=== PATIENT | female | born 1980 | race Hispanic/Latino ===

== ENCOUNTER 2017-08-02 08:46 | Inpatient (IN) | payer OTHER ==
[~2017-08-02] VITALS: Ht 154.9 cm; Wt 71.2 kg
[~2017-08-02 08:46] MED LIST: IRON325 M1 PO; PRE-NATAL PO
[2017-08-04] VITALS (18 sets, daily range): BP systolic 92–140; BP diastolic 45–83
--- NOTE | 2017-08-04 02:00 | NUR ---
0045- PT ARRIVED ON UNIT FOR SCHEDULED AM REPEAT , ACCOMPANIED BY SIGNIFICANT OTHER, ADMITTED TO AND ORIENTED TO AND CALL RESENDIZ, ROUTINE ADMISSION COMPLETED, EFM X2 APPLIED- REACTIVE TRACING OBTAINED, ASSESSMENT DONE- ALL WNL, VSS, IV SITE OBTAINED AND IVF'S INFUSING W/OUT DIFFICULTY, RADHA AREA PREPED/SHAVED FOR SURGERY AT THIS TIME, PT DENIES ANY CONCERNS OR NEEDS AT THIS TIME, ENCOURAGED TO CALL NURSE FOR ANY NEEDS OR CONCERNS- VERBALIZES UNDERSTANDING, CALL RESENDIZ WITHIN REACH.
[2017-08-04 02:07] LABS: URINE BILIRUBIN - DIPSTICK NEGATIVE (NEGATIVE); URINE BLOOD DIPSTICK TRACE-INTACT (NEGATIVE); URINE COLOR YELLOW; URINE GLUCOSE - DIPSTICK NEGATIVE (NEGATIVE); URINE KETONE TRACE mg/dL (NEGATIVE); URINE NITRITE - DIPSTICK NEGATIVE (Negative); URINE PH 5.5 (4.5-8.0); URINE PROTEIN - DIPSTICK NEGATIVE (NEG-TRACE); URINE UROBILINOGEN - DIPSTICK 0.2 E.U./dL (0.2)
[2017-08-04 02:09] LABS: HEMATOCRIT 33.6 % (37.0-47.0); HEMOGLOBIN 10.6 g/dl (12.0-16.0); IMMATURE GRANULOCYTES 0.4 % (0.0-1.0); MEAN CELL VOLUME 82.6 fL CALC (80.0-100.0); MEAN CORPUSCULAR HGB CONC 31.5 g/L CALC (32.0-36.0); NEUT# 4.71 thou/uL (2.00-7.15); RED BLOOD COUNT 4.07 mill/uL (4.20-5.60); RED CELL DISTRI WIDTH 19.2 % (11.5-15.5)
[2017-08-04 02:11] LABS: BARBITURATES NEGATIVE (NEGATIVE); COCAINE NEGATIVE (NEGATIVE); METHADONE NEGATIVE (NEGATIVE); OXCYCODONE NEGATIVE (NEGATIVE); TETRAHYDROCANNABIONOL NEGATIVE (NEGATIVE); TRICYLIC ANTIDEPRESSANTS NEGATIVE (NEGATIVE)
[2017-08-04 02:14] LABS: URINE CLARITY SL CLOUDY; URINE LEUK ESTERASE LARGE (NEGATIVE)
[2017-08-04 02:18] LABS: URINE BACTERIA MANY hpf; URINE SQUAMOUS EPITHELIAL CELL MANY EPI/hpf (0-FEW); URINE WBC 20-50 WBC/hpf (0-5)
[2017-08-04 02:30] LABS: ALBUMIN 3.5 g/dL (3.2-5.0); ALKALINE PHOSPHATASE 301 u/l (38-126); ANION GAP 15 (6-22 (CALC)); BILIRUBIN, TOTAL 0.4 mg/dL (0.0-1.4); BUN 7 mg/dL (7-17); BUN/CREATININE RATIO 15 (12-20 (CALC)); CALCIUM 9.9 mg/dL (8.4-10.2); CARBON DIOXIDE 18 mmol/l (22-30); CHLORIDE 110 mmol/l (95-108); CREATININE 0.5 mg/dL (0.5-1.0); GFR > 60 ML/MIN (>=60 (CALC)); GFR FOR AFR.AMER. > 60 ML/MIN (>=60 (CALC)); GLUCOSE 75 mg/dL (65-105); POTASSIUM 4.1 mmol/l (3.5-5.1); SGOT/AST 22 u/l (14-36); SGPT/ALT 20 u/l (9-52); SODIUM 138 mmol/l (137-146); TOTAL PROTEIN 6.4 g/dL (6.3-8.2)
--- NOTE | 2017-08-04 06:35 | NUR ---
PT PREPED FOR PRE-OP THIS AM, UP TO BR- VOIDED W/OUT DIFFICULTY, PT CLEANSED ABD AREA W/HIBICLEANS, MEDICATED ORDERED, EFM X2 APPLIED, VSS, PT DENIES ANY PAIN OR CONCERNS AT THIS TIME, SPOUSE AT BEDSIDE, PT AND SPOUSE REENCOURAGED TO CALL NURSE FOR ANY NEEDS OR CONCERNS.
--- NOTE | 2017-08-04 06:45 | NUR ---
Received report from prior shift on patient.
--- NOTE | 2017-08-04 07:27 | NUR ---
Patient to OR at present time via wheelchair in good condition.
--- NOTE | 2017-08-04 08:52 | NUR ---
Patient to Pacu via stretcher.
--- NOTE | 2017-08-04 09:16 | NUR ---
Cytotec 200mcg by mouth given as ordered.
--- NOTE | 2017-08-04 09:50 | NUR ---
Patient to room 205 via stretcher alert with to breast accompanied by PACU staff. Patient voices no concern at this moment. Significant other to bedside.
--- NOTE | 2017-08-04 11:03 | NUR ---
Family to bedside at present time.
--- NOTE | 2017-08-04 12:23 | NUR ---
Ancef 2gm iv given as ordered.
--- NOTE | 2017-08-04 14:00 | NUR ---
patient resting in bed in no distress. Patient states pain level of 1 on scale of 1 to 10. Patient denies wanting pain medication at present time.
--- NOTE | 2017-08-04 16:50 | NUR ---
Patient frias out and up to bathroom. Pericare done with instructions, peripad and mesh panties applied.
--- NOTE | 2017-08-04 18:42 | NUR ---
Patient resting sitting in chair with in no distress.
--- NOTE | 2017-08-04 18:48 | NUR ---
BEDSIDE PT REPORT RECEIVED FROM EMERY ROSA RN ON PT STATUS. PT RESTING IN RECLINER HOLDING . PT DENIES PAIN. INFORMED PT AND (WHO SPEAKS EQUATORIAL GUINEAN) TO TAKE PAIN MEDICATION BEFORE PAIN REACHES A 10/10. INTERPRETS AND PT NODS IN AGREEMENT.
--- NOTE | 2017-08-04 20:42 | NUR ---
PT AMBULATES TO RESTROOM. GAIT SLOW AND STEADY DENIES DIZZINESS. VOIDS IN URINE CONTAINER BUT EMPTIES IT BEFORE NURSE CAN MEASURE URINE. ENCOURAGED NOT TO EMPTY HAT UNTIL NURSE CAN SEE AMOUNT. VS TAKEN AND PHYSICAL ASSESSMENT DONE. USES INCENTIVE SPIROMETER X 10 TRIES TO 1500 ML. MEDICATED FOR PAIN.
--- NOTE | 2017-08-04 23:40 | NUR ---
PT NURSING . BED IN LOW POSITION AND CALL LIGHT WITHIN REACH.
--- NOTE | 2017-08-05 02:14 | NUR ---
PT TRYING TO BREASTFEED INFANT. CRYING LOUDLY. REQUESTED PAIN MEDICATION. MEDICATED WITH TORADOL 30MG IVP FOR 6/10 ABDOMINAL AND INCISIONAL PAIN. HOLDS .
[2017-08-05 05:30] VITALS: BP 108/59
--- NOTE | 2017-08-05 05:58 | NUR ---
CBC DRAWN FROM LEFT AC WITHOUT PROBLEMS AND MINIMAL BLEEDING. REQUESTS PAIN MEDICATION. SEE E-MAR FOR DETAILS. NO OTHER CONCERNS. VOIDED 2 TIMES RECENTLY. AT BEDSIDE.
[2017-08-05 06:24] LABS: HEMATOCRIT 26.8 % (37.0-47.0); HEMOGLOBIN 8.8 g/dl (12.0-16.0); IMMATURE GRANULOCYTES 0.4 % (0.0-1.0); MEAN CELL VOLUME 82.2 fL CALC (80.0-100.0); MEAN CORPUSCULAR HGB CONC 32.8 g/L CALC (32.0-36.0); NEUT# 7.44 thou/uL (2.00-7.15); RED BLOOD COUNT 3.26 mill/uL (4.20-5.60)
[2017-08-05 07:20] VITALS: BP 118/69
--- NOTE | 2017-08-05 07:20 | NUR ---
ASSESSMENT DONE AND VS CHARTED. PT STATED THAT SHE HAS NOT PASS GAS YET. ENCOURAGE PT TO AMBULATE IN THE HALLWAYS AND PT VERBALIZED UNDERSTANDING. PT STATED THAT SHE HAS BEEN USING THE INCENTIVE SPIROMETRY. ENCOURAGE PT TO DRINK WATER AND PT VERBALIZED UNDERSTANDING. PT DENIES ANY NEEDS AT THIS TIME. IN ROOM.
--- NOTE | 2017-08-05 11:15 | NUR ---
PT STATED THAT SHE TOLERATED SHOWER WELL. PT STATED THAT PAIN IS 2/10 IN ABDOMEN. PT DENIES PAIN MEDICATION AT THIS TIME. PT DENIES ANY OTHER NEEDS AT THIS TIME. IN ROOM.
--- NOTE | 2017-08-05 13:33 | NUR ---
PT AMBULATING IN THE HALLWAYS WITH AT SIDE.
[2017-08-05 15:25] VITALS: BP 117/57
--- NOTE | 2017-08-05 15:33 | NUR ---
PT IS SITTING IN CHAIR. MEDICATED PT FOR PAIN SEE EMAR. PT DENIES ANY OTHER NEEDS AT THIS TIME.
--- NOTE | 2017-08-05 15:40 | NUR ---
DR. MCGOWAN DISCUSSED PLAN OF CARE WITH PT AND PT VERBALIZED UNDERSTANDING. PT DENIES ANY NEEDS AT THIS TIME.
--- NOTE | 2017-08-05 17:13 | NUR ---
DISCUSSED DISCHARGE PAPERS AND PT VERBALIZED UNDERSTANDING. PT DENIES QUESTIONS AT THIS TIME.
--- NOTE | 2017-08-05 18:04 | NUR ---
PT IS SITTTING IN BED. IN ROOM. PT DENIES ANY NEEDS AT THIS TIME. REPORT READY FOR ONCOMING SHIFT.
[2017-08-05 19:00] VITALS: BP 130/67
--- NOTE | 2017-08-05 19:00 | NUR ---
PT RESTING QUIETLY IN BED WITH SIGNIFICANT OTHER AT BEDSIDE. ASSSESSMENT COMPLETED CHARTED. PT STATES HAS LITTLE PAIN BUT DENIES THE NEED FOR PAIN MEDICATION AT THIS TIME. PT HAS ICE WATER. PT DENIES ANY NEEDS AT THIS TIME. ENCOURAGED PT TO CALL WITH ANY NEEDS.
[2017-08-06 04:35] VITALS: BP 140/76
--- NOTE | 2017-08-06 05:30 | NUR ---
PT RESTING QUIETLY IN BED WITH EYES CLOSED. SIGNIFICANT OTHER STANDING AT INFANT'S OPEN CRIB. ENCOURAGED TO CALL WITH NEEDS.
--- NOTE | 2017-08-06 07:00 | NUR ---
REPORT RECEIVED, PT RESTS, ALLOWED TO REST.
--- NOTE | 2017-08-06 07:35 | NUR ---
SERVED BREAKFAST, EPRESSSES NO NEEDS AT THIS TIME. S/O IN ROOM.
--- NOTE | 2017-08-06 09:15 | NUR ---
DR MCGOWAN IN TO SEE PT, PL FOR DISCHARGE TODSY.
[2017-08-06 09:30] VITALS: BP 118/75
[2017-08-06] MEDS ORDERED: LORTAB 7.57.5 MG PO (11:15)
[2017-08-06] MEDS ORDERED: IBUPROFEN600 MG PO (11:16)
--- NOTE | 2017-08-06 12:00 | NUR ---
DISCHARGE PLAN INSTRUCTIONS COMPLETED, PT PREPARES FOR DISCHARGE.
--- NOTE | 2017-08-06 12:20 | NUR ---
DISCHARGE PLAN COMPLETED PT ACKNOWLEDGED UNDERSTANDING, PT LEAVES TO HOME VIA WC IN GOOD CONDITION WITH INFANT IN CARSEAT ACCOMPANIED BY S/O, ESCORTED BY Sadie CUBA RN.
== END 2017-08-06 12:20 | disposition home or self-care (01) | DRG 766 ==
LOC: OB 08-04 00:44
PROVIDERS: ADMIT Obstetrics & Gynecology; ATTEND Obstetrics & Gynecology
PROC: 10D00Z1 Extraction of Products of Conception, Low, Open Approach (ICD-10-PCS; principal; 2017-08-04)
PROC: 0UB70ZZ Excision of Bilateral Fallopian Tubes, Open Approach (ICD-10-PCS; 2017-08-04)
DX: O34.211 Maternal care for low transverse scar from previous cesarean delivery (principal); N85.8 Other specified noninflammatory disorders of uterus; Z3A.39 39 weeks gestation of pregnancy; Z37.0 Single live birth
CPT/HCPCS: J2270